=== PATIENT | male | born 1995 | race Caucasian/White ===

== ENCOUNTER 2019-03-08 03:45 | Emergency (ER) | payer BC ==
[~2019-03-08] VITALS: Ht 180.3 cm; Wt 72.0 kg
[~2019-03-08 03:45] MED LIST: ACET-141 PO
[2019-03-08 03:49] VITALS: Ht 180.3 cm; Wt 72.0 kg
[2019-03-08 06:00] VITALS: BP 128/95; PULSE 85; RESP 22
[2019-03-08] MEDS ORDERED: ACETAMINOPHEN 325 MG TAB PO ONE (06:00)
== END 2019-03-08 06:00 | disposition home or self-care (01) ==
LOC: FTE 03:45
DX: S00.33XA Contusion of nose, initial encounter (principal); Y04.0XXA Assault by unarmed brawl or fight, initial encounter
CPT/HCPCS: 70160; 99283; Z7610